=== PATIENT | female | born 1990 | race American Indian/Alaskan Native ===

== ENCOUNTER 2020-05-11 09:11 | Emergency (ER) | payer OTHER ==
[2020-05-11 09:34] VITALS: BP 142/87
[2020-05-11] MEDS ORDERED: ONDANSETRON 4 MG/2 ML INJ ONE (09:50)
[2020-05-11] MEDS ORDERED: MORPHINE 4 MG/1 ML INJ ONE (09:50)
[2020-05-11] MEDS ORDERED: ONDANSETRON 4 MG/2 ML INJ IV ONE (09:55)
[2020-05-11] MEDS ORDERED: MORPHINE 4 MG/1 ML INJ IV ONE (09:55)
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
== END 2020-05-11 10:53 | disposition left against medical advice (07) ==
LOC: ED 09:11
DX: T24.201A Burn of second degree of unspecified site of right lower limb, except ankle and foot, initial encounter (principal); L03.115 Cellulitis of right lower limb; F17.200 Nicotine dependence, unspecified, uncomplicated; Z88.8 Allergy status to other drugs, medicaments and biological substances; X58.XXXA Exposure to other specified factors, initial encounter; Y93.89 Activity, other specified; Y92.009 Unspecified place in unspecified non-institutional (private) residence as the place of occurrence of the external cause; Y99.9 Unspecified external cause status
CPT/HCPCS: 96374; 96375; 99282; J2270; J2405